=== PATIENT | female | born 1990 | race Caucasian/White ===

== ENCOUNTER 2021-12-12 12:38 | Day surgery (SDC) | payer BC ==
[2021-12-12 13:23] VITALS: BMI 21.4
[2021-12-12] MEDS ORDERED: hydrALAZINE 20 MG/ML VIAL SLOW IVP PRN (13:36)
[2021-12-12 14:05] LABS: Fetal Membranes Rupture No Membranes Rupture (No Rupture)
== END 2021-12-12 14:19 | disposition home health service (06) ==
LOC: CSHLD/OP 12:38
PROVIDERS: ATTEND Student in an Organized Health Care Education/Training Program
DX: O99.891 Other specified diseases and conditions complicating pregnancy (principal); N89.8 Other specified noninflammatory disorders of vagina; Z3A.37 37 weeks gestation of pregnancy; Z88.0 Allergy status to penicillin
CPT/HCPCS: 84112; 99283

== ENCOUNTER 2021-12-16 16:01 | Inpatient (IN) | payer BC ==
[~2021-12-16 16:01] MED LIST: Bupivacaine/Epinephrine 0.25% 30 ML VIAL ONE; Terbutaline Sulfate 1 MG/ML VIAL ONE
[2021-12-16 16:27] VITALS: BMI 21.4
[2021-12-16] MEDS ORDERED: Promethazine HCl 25 MG/ML VIAL IM PRN (16:39)
[2021-12-16] MEDS ORDERED: HYDROcodone/Acetaminophen 5/325 mg Tablet PO PRN ×2 (16:39)
[2021-12-16] MEDS ORDERED: Ibuprofen 800 MG TAB PO PRN (16:39)
[2021-12-16] MEDS ORDERED: Lidocaine 1% (PF) 30 ML VIAL SC PRN (16:39)
[2021-12-16] MEDS ORDERED: Butorphanol Tartrate 1 MG/ML VIAL SLOW IVP PRN (16:39)
[2021-12-16] MEDS ORDERED: hydrALAZINE 20 MG/ML VIAL SLOW IVP PRN (16:39)
[2021-12-16] MEDS ORDERED: Ondansetron PF 4 MG/2 ML Vial IVP PRN (16:39)
[2021-12-16] MEDS ORDERED: Lactated Ringer's 1,000 ML IV SCH (16:45)
[2021-12-16] MEDS ORDERED: NS w/ Oxytocin 30 units 500 ML IV SCH (16:45)
[2021-12-16 16:56] LABS: Hemoglobin 14.2 g/dL (12.0-15.5); Mean Corpuscular HGB CONC 33.7 g/dL (32.0-36.0); Mean Corpuscular Hemoglobin 30.8 pg (27.0-33.0); Mean Corpuscular Volume 91.3 fl (81.6-98.3); Mean Platelet Volume 10.6 fl (7.4-10.4); Platelet Count 210 10x3/uL (150-450); RBC Distribution Width 12.9 % (11.5-14.5); Red Blood Cell (RBC) Count 4.61 10x6/uL (3.90-5.03); White Blood Cell (WBC) Count 19.5 10x3/uL (3.5-10.5)
[2021-12-16] MEDS: Lactated Ringer's 1,000 ML IV SCH (17:00)
[2021-12-16 17:24] LABS: Syphilis Antibody Nonreactive (Nonreactive); Syphilis Antibody Index 0.04 S/CO (<1.00 Non-Reactive)
[2021-12-16 17:25] LABS: Hep B Surf Ag Non-Reactive S/CO (NonReactive)
[2021-12-16 17:28] LABS: HBSAg Index 0.15 S/CO (0-0.99)
[2021-12-16] MEDS ORDERED: Fentanyl 2 mcg/Bup 0.1% Cadd 100 ML ONE (17:38)
[2021-12-16] MEDS ORDERED: ceFAZolin 2 GM/Dextrose 50 ML IVPB ONE (23:10)
[2021-12-16] MEDS: NS w/ Oxytocin 30 units 500 ML IV SCH (23:38)
[2021-12-17] MEDS: NS w/ Oxytocin 30 units 500 ML IV SCH (00:20)
[2021-12-17] MEDS ORDERED: Lanolin Ointment 7 GM TUBE TOP PRN (02:34)
[2021-12-17] MEDS ORDERED: hydrALAZINE 20 MG/ML VIAL SLOW IVP PRN (02:34)
[2021-12-17] MEDS ORDERED: Ondansetron PF 4 MG/2 ML Vial IVP PRN (02:34)
[2021-12-17] MEDS ORDERED: NS w/ Oxytocin 30 units 500 ML IV SCH (02:34)
[2021-12-17] MEDS ORDERED: Zolpidem Tartrate 5 MG TAB PO PRN (02:34)
[2021-12-17] MEDS ORDERED: HYDROcodone/Acetaminophen 5/325 mg Tablet PO PRN (02:34)
[2021-12-17] MEDS ORDERED: Benzocaine-Menthol 82.5 ML CAN TOP PRN (02:34)
[2021-12-17] MEDS ORDERED: Boostrix 0.5 ML (Tdap) VIAL IM ONE (02:34)
[2021-12-17] MEDS ORDERED: Preparation H Ointment 28 GM TUBE PR PRN (02:34)
[2021-12-17] MEDS ORDERED: diphenhydrAMINE 25 MG CAP PO PRN (02:34)
[2021-12-17] MEDS ORDERED: Bisacodyl 10 MG SUPP PR PRN (02:34)
[2021-12-17] MEDS: Ibuprofen 800 MG TAB PO SCH ×3 (05:29→21:22)
[2021-12-17] MEDS: Lactated Ringer's 1,000 ML IV SCH (08:20)
[2021-12-17] MEDS: Ferrous Sulfate 325 MG TAB PO SCH ×2 (08:20→15:20)
[2021-12-17] MEDS: Milk Of Magnesia 30 ML UDCUP PO PRN (09:43)
[2021-12-17] MEDS: Docusate 100 MG CAP PO SCH ×2 (09:43→21:22)
[2021-12-17] MEDS: HYDROcodone/Acetaminophen 5/325 mg Tablet PO PRN ×2 (11:13→18:39)
[2021-12-18] MEDS: HYDROcodone/Acetaminophen 5/325 mg Tablet PO PRN ×3 (00:31→12:25)
[2021-12-18] MEDS: Ibuprofen 800 MG TAB PO SCH ×3 (05:48→21:20)
[2021-12-18] MEDS: Docusate 100 MG CAP PO SCH ×2 (08:23→21:20)
[2021-12-18] MEDS: Milk Of Magnesia 30 ML UDCUP PO PRN (08:23)
[2021-12-18] MEDS: Ferrous Sulfate 325 MG TAB PO SCH ×2 (08:24→17:40)
[2021-12-18] MEDS: Ondansetron ODT 4 MG TAB PO PRN ×2 (13:53→20:17)
[2021-12-19] MEDS: Ibuprofen 800 MG TAB PO SCH (05:04)
[2021-12-19] MEDS: Ferrous Sulfate 325 MG TAB PO SCH (08:09)
[2021-12-19] MEDS: Milk Of Magnesia 30 ML UDCUP PO PRN (08:10)
[2021-12-19] MEDS: Docusate 100 MG CAP PO SCH (08:10)
[2021-12-19 08:15] VITALS: BP 111/66; TEMP 98.7
== END 2021-12-19 09:45 | disposition home or self-care (01) | DRG 768 ==
LOC: CSHLD/OP 16:01 → CSHLD 17:02 → CSHPP 12-17 02:00
PROVIDERS: ADMIT Student in an Organized Health Care Education/Training Program; ATTEND Student in an Organized Health Care Education/Training Program
PROC: 10D07Z6 Extraction of Products of Conception, Vacuum, Via Natural or Artificial Opening (ICD-10-PCS; principal; 2021-12-16)
PROC: 0DQP0ZZ Repair Rectum, Open Approach (ICD-10-PCS; 2021-12-16)
PROC: 0W8NXZZ Division of Female Perineum, External Approach (ICD-10-PCS; 2021-12-16)
DX: O42.02 Full-term premature rupture of membranes, onset of labor within 24 hours of rupture (principal); Z37.0 Single live birth; O70.3 Fourth degree perineal laceration during delivery; Z86.16 Personal history of COVID-19; Z3A.39 39 weeks gestation of pregnancy; Z88.0 Allergy status to penicillin; O76 Abnormality in fetal heart rate and rhythm complicating labor and delivery; O75.4 Other complications of obstetric surgery and procedures; I49.1 Atrial premature depolarization
CPT/HCPCS: 51702; 85027; 86780; 86850; 86900; 86901; 87340; 93005; 93010; 99285; J0690; J2405; J2590; J3105; J7120; Q0162

== ENCOUNTER 2025-07-04 15:57 | Observation (INO) | payer OTHER ==
[2025-07-04] MEDS ORDERED: hydrALAZINE 20 MG/ML VIAL SLOW IVP PRN (16:35)
[2025-07-04] MEDS: Acetaminophen 500 MG TAB PO SCH (17:14)
[2025-07-04] MEDS: Ondansetron PF 4 MG/2 ML Vial IVP SCH (17:14)
[2025-07-04 17:30] VITALS: BMI 20.9
[2025-07-04 17:30] LABS: Glucose, Urine (Dipstick) Normal (Negative); Leukocyte 25 (Negative); Protein, Urine (Dipstick) 30 mg/dl (Neg-Trace); Specific Gravity, Urine 1.025 (1.005-1.030)
[2025-07-04 18:00] LABS: CAUTI Indications for Culture Pregnancy; RBC/HPF 0-3 HPF (0-3)
[2025-07-04 18:01] LABS: Bacteria/HPF 2+ HPF (None Seen)
[2025-07-04 18:02] LABS: Mucous/LPF 2+ LPF (<2+)
[2025-07-04 18:03] LABS: Urine Culture Reflex Yes Yes
[2025-07-04 18:08] LABS: #Basophils Less than 0.03 10x3/uL (0.0-0.2); #Eosinophils Less than 0.03 10x3/uL (0.0-0.5); #Monocytes 0.84 10x3/uL (0.0-1.1); #Neutrophils 5.95 10x3/uL (1.5-8.4); %Basophils 0.3 % (0.0-2.0); %Eosinophils 0.1 % (0.0-6.0); %Lymphocytes 2.1 % (18.0-47.0); %Monocytes 11.6 % (0.0-10.0); %Neutrophils 82.2 % (40.0-75.0); Hematocrit 25.8 % (34.9-44.5); Hemoglobin 8.7 g/dL (12.0-15.5); Mean Corpuscular Hemoglobin 29.6 pg (27.0-33.0); Mean Corpuscular Volume 87.8 fL (81.6-98.3); Platelet Count 153 10x3/uL (150-450); Red Blood Cell (RBC) Count 2.94 10x6/uL (3.90-5.03); White Blood Cell (WBC) Count 7.24 10x3/uL (3.5-10.5)
[2025-07-04 18:08] LABS: Influenza A by NAA Not Detected (NotDetected); Influenza B by NAA Not Detected (NotDetected); RSV by NAA Not Detected (NotDetected); SARS-CoV-2 NAA Rapid Test DETECTED (NotDetected)
[2025-07-04 18:25] LABS: ALT (SGPT) 14 U/L (Less than 34); AST (SGOT) 25 U/L (11-34); Albumin 2.5 g/dL (3.1-4.5); Alkaline Phosphatase 48 U/L (40-110); Anion Gap 12 mmol/L (10-20); BUN (Urea Nitrogen) 7 mg/dL (7.0-18.7); Bilirubin, Total 0.3 mg/dL (0.3-1.2); Calc. Creatinine Clearance 127 mL/min (70-130); Calcium 8.0 mg/dL (7.8-10.44); Carbon Dioxide 19 mmol/L (22-29); Chloride 107 mmol/L (98-107); Globulin 2.5 g/dL (2.4-3.5); Glucose 88 mg/dL (70-105); Potassium 4.0 mmol/L (3.5-5.1); Sodium 134 mmol/L (136-145)
[2025-07-04] MEDS ORDERED: Ondansetron PF 4 MG/2 ML Vial IVP PRN (19:50)
[2025-07-04] MEDS: cefTRIAXone\\ROCEPHIN 2 GM in Sodium Chloride 0.9% 100 ML IVPB SCH (20:27)
[2025-07-04] MEDS: Acetaminophen 500 MG TAB PO PRN (23:32)
[2025-07-05] MEDS: Ferrous Sulfate 325 MG TAB PO SCH (07:58)
[2025-07-06 05:14] LABS: #Basophils Less than 0.03 10x3/uL (0.0-0.2); #Eosinophils 0.07 10x3/uL (0.0-0.5); #Monocytes 0.61 10x3/uL (0.0-1.1); #Neutrophils 2.90 10x3/uL (1.5-8.4); %Basophils 0.4 % (0.0-2.0); %Eosinophils 1.4 % (0.0-6.0); %Lymphocytes 23.2 % (18.0-47.0); %Monocytes 12.5 % (0.0-10.0); %Neutrophils 59.4 % (40.0-75.0); Hematocrit 24.2 % (34.9-44.5); Hemoglobin 8.0 g/dL (12.0-15.5); Mean Corpuscular Hemoglobin 30.0 pg (27.0-33.0); Mean Corpuscular Volume 90.6 fL (81.6-98.3); Platelet Count 137 10x3/uL (150-450); Red Blood Cell (RBC) Count 2.67 10x6/uL (3.90-5.03); White Blood Cell (WBC) Count 4.88 10x3/uL (3.5-10.5)
[2025-07-06 05:25] LABS: Anion Gap 7 mmol/L (10-20); BUN (Urea Nitrogen) 6 mg/dL (7.0-18.7); Calc. Creatinine Clearance 132 mL/min (70-130); Calcium 7.7 mg/dL (7.8-10.44); Carbon Dioxide 21 mmol/L (22-29); Chloride 115 mmol/L (98-107); Glucose 96 mg/dL (70-105); Potassium 3.7 mmol/L (3.5-5.1); Sodium 139 mmol/L (136-145)
[2025-07-06 08:10] VITALS: BP 98/58; TEMP 97.9
== END 2025-07-06 12:55 | disposition home or self-care (01) ==
LOC: CSHLD/OP 15:57 → CSHLD 20:21 → INTOOBSV 20:21 → CSHANTE 22:40
PROVIDERS: ADMIT Student in an Organized Health Care Education/Training Program; ATTEND Student in an Organized Health Care Education/Training Program
DX: O98.513 Other viral diseases complicating pregnancy, third trimester (principal); U07.1 COVID-19; O99.891 Other specified diseases and conditions complicating pregnancy; N13.30 Unspecified hydronephrosis; Z3A.30 30 weeks gestation of pregnancy; N13.2 Hydronephrosis with renal and ureteral calculous obstruction; Z88.0 Allergy status to penicillin
CPT/HCPCS: 36415; 76770; 76819; 80048; 80053; 81001; 83605; 85025; 87086; 87637; 93306; 96360; 96361; 96374; 96375; 96376; 99285; G0378; J0595; J0696; J2405; J7030

== ENCOUNTER 2025-09-01 12:11 | Inpatient (IN) | payer OTHER ==
[2025-09-01] MEDS ORDERED: Methylergonovine 0.2 MG/ML VIAL IM PRN (12:16)
[2025-09-01] MEDS ORDERED: Diphenoxylate HCl/Atropine Tablet PO PRN (12:16)
[2025-09-01] MEDS ORDERED: Carboprost 250 MCG/ML AMP IM PRN (12:16)
[2025-09-01] MEDS ORDERED: HYDROcodone/Acetaminophen 5/325 mg Tablet PO PRN ×2 (12:16→22:07)
[2025-09-01] MEDS ORDERED: Lidocaine 1% (PF) 30 ML VIAL SC PRN (12:16)
[2025-09-01] MEDS ORDERED: Tranexamic Acid 1,000 MG/10 ML VIAL IVP PRN (12:16)
[2025-09-01] MEDS ORDERED: Acetaminophen 500 MG TAB PO PRN (12:16)
[2025-09-01] MEDS ORDERED: hydrALAZINE 20 MG/ML VIAL SLOW IVP PRN ×2 (12:16→22:07)
[2025-09-01] MEDS ORDERED: Oxytocin 30 units/NS 500 ML 500 ML IV SCH (12:30)
[2025-09-01 12:38] VITALS: BMI 20.4
[2025-09-01 13:18] LABS: Hematocrit 41.4 % (34.9-44.5); Hemoglobin 13.6 g/dL (12.0-15.5); Mean Corpuscular Hemoglobin 28.3 pg (27.0-33.0); Mean Corpuscular Volume 86.1 fL (81.6-98.3); Platelet Count 262 10x3/uL (150-450); Red Blood Cell (RBC) Count 4.81 10x6/uL (3.90-5.03); White Blood Cell (WBC) Count 13.33 10x3/uL (3.5-10.5)
[2025-09-01 13:38] LABS: Glucose 65 mg/dL (70-105)
[2025-09-01 14:02] LABS: Hep B Surf Ag - L&D Non-Reactive S/CO (NonReactive)
[2025-09-01 14:03] LABS: Syphilis Antibody Index 0.05 S/CO (<1.00 Non-Reactive)
[2025-09-01] MEDS: Oxytocin 30 units/NS 500 ML 500 ML IV SCH (14:04)
[2025-09-01] MEDS: fentaNYL/Ropivacaine Epidural 100 ML ONE (16:06)
[2025-09-01] MEDS ORDERED: Bupivacaine HCl 0.5%/Epinephrine 1:200,000/PF 30 ml Vial ONE (17:00)
[2025-09-01] MEDS ORDERED: Bupivacaine/Epinephrine 0.25% 30 ML VIAL ONE (17:00)
[2025-09-01] MEDS ORDERED: Bupivacaine 0.25% HCL 30 ML VIAL ONE (17:00)
[2025-09-01] MEDS: Ondansetron PF 4 MG/2 ML Vial IVP PRN (17:17)
[2025-09-01] MEDS: Ibuprofen 800 MG TAB PO PRN (21:49)
[2025-09-01] MEDS ORDERED: diphenhydrAMINE 25 MG CAP PO PRN (22:07)
[2025-09-01] MEDS ORDERED: Milk Of Magnesia 30 ML UDCUP PO PRN (22:07)
[2025-09-01] MEDS ORDERED: Ondansetron PF 4 MG/2 ML Vial IVP PRN (22:07)
[2025-09-01] MEDS ORDERED: Lanolin Ointment 7 GM TUBE TOP PRN (22:07)
[2025-09-01] MEDS ORDERED: Bisacodyl 10 MG SUPP PR PRN (22:07)
[2025-09-01] MEDS ORDERED: Preparation H Ointment 28 GM TUBE PR PRN (22:07)
[2025-09-02] MEDS: Ibuprofen 800 MG TAB PO SCH (05:11)
[2025-09-02] MEDS: Ferrous Sulfate 325 MG TAB PO SCH (07:14)
[2025-09-02] MEDS: Benzocaine-Menthol 82.5 ML CAN TOP PRN (09:16)
[2025-09-02 20:02] VITALS: BP 125/61; TEMP 98.3
== END 2025-09-02 20:00 | disposition home or self-care (01) | DRG 807 ==
LOC: CSHLD 12:11 → CSHPP 21:39
PROVIDERS: ADMIT Student in an Organized Health Care Education/Training Program; ATTEND Student in an Organized Health Care Education/Training Program
PROC: 10E0XZZ Delivery of Products of Conception, External Approach (ICD-10-PCS; principal; 2025-09-01)
PROC: 4A1HXCZ Monitoring of Products of Conception, Cardiac Rate, External Approach (ICD-10-PCS; 2025-09-01)
DX: O24.425 Gestational diabetes mellitus in childbirth, controlled by oral hypoglycemic drugs (principal); Z37.0 Single live birth; Z3A.38 38 weeks gestation of pregnancy; Z87.442 Personal history of urinary calculi; Z79.899 Other long term (current) drug therapy; Z88.0 Allergy status to penicillin
CPT/HCPCS: 51702; 82947; 85027; 86780; 86850; 86900; 86901; 87340; J0665; J2405; J2590; J7120